=== PATIENT | female | born 1945 | race Caucasian/White ===

== ENCOUNTER 2020-02-16 09:46 | Inpatient (IN) ==
[~2020-02-16 09:46] MED LIST: Acetaminophen IV 1,000 MG/100 ML INFUS..BTL IVPB ONE; Famotidine 20 MG/2 ML VIAL IVP ONE; Ringers Solution, Lactated 1,000 ML IVC SCH; Total Joint Mixture (50 ml) INTRAART ONE
[2020-02-16] MEDS ORDERED: CeFAZolin Syr 2,000MG/20 ML 2,000 MG/20 ML SYRINGE IVPB ONE (10:13)
[2020-02-16] MEDS ORDERED: Vancomycin 1,000 MG VIAL ONE (11:27)
[2020-02-16] MEDS ORDERED: Ethanol\\Acetic Acid\\Na Ace\\Ben 1,000 ML IRRIG.SOLN IR ONE (11:27)
[2020-02-16] MEDS ORDERED: *HR* FentaNYL (PF) 100 MCG/2 ML VIAL ONE (11:50)
[2020-02-16] MEDS ORDERED: Dexamethasone 4 MG/ML VIAL ONE (11:50)
[2020-02-16] MEDS ORDERED: Ondansetron 4 MG/2 ML VIAL ONE (11:50)
[2020-02-16] MEDS ORDERED: *HR* Propofol 200 MG/20 ML VIAL IVP ONE (12:04)
[2020-02-16] MEDS ORDERED: Ropivacaine/PF 0.5% 30 ML VIAL ONE (12:06)
[2020-02-16] MEDS ORDERED: Tranexamic Acid 1,000 MG/10 ML VIAL ONE (12:13)
[2020-02-16] MEDS ORDERED: *HR* HYDROMORPHONE 2 MG/ML VIAL ONE (12:48)
[2020-02-16] MEDS ORDERED: *HR* HYDROmorphone PF 0.5 MG/0.5 ML SYRINGE IVP PRN (13:59)
[2020-02-16] MEDS ORDERED: Ondansetron 4 MG/2 ML VIAL IVP ONE (13:59)
[2020-02-16] MEDS ORDERED: *HR* OxyCODONE Immed Rel 5 MG TABLET PO PRN (14:28)
[2020-02-16 14:37] LABS: Hematocrit 32.7 % (35.3-44.9)
[2020-02-16 14:38] LABS: Hemoglobin 10.1 g/dL (11.5-15.4)
[2020-02-16] MEDS ORDERED: *HR* Labetalol 20 MG/4 ML SYRINGE IVP PRN (14:45)
[2020-02-16] MEDS ORDERED: *HR* Labetalol 20 MG/4 ML SYRINGE IVP ONE (14:47)
[2020-02-16] MEDS ORDERED: Ondansetron 4 MG/2 ML VIAL IVP PRN (15:18)
[2020-02-16] MEDS ORDERED: Naloxone 0.4 MG/ML INJ IVP PRN (15:18)
[2020-02-16] MEDS ORDERED: Ringers Solution, Lactated 1,000 ML IVC SCH (15:18)
[2020-02-16] MEDS ORDERED: Loratadine 10 MG TABLET PO PRN (15:18)
[2020-02-16] MEDS ORDERED: D5% in Water 1,000 ML IVC PRN (15:18)
[2020-02-16] MEDS ORDERED: MOM Conc 10 ML UD.LIQ PO PRN (15:18)
[2020-02-16] MEDS ORDERED: Sennosides 8.6 MG TABLET PO PRN (15:18)
[2020-02-16] MEDS ORDERED: *HR* Dextrose 50 % in Water (Vial) 50 ML VIAL IVP PRN (15:18)
[2020-02-16] MEDS ORDERED: Dextrose Gel 15 GM/37.5 ML TUBE PO PRN ×2 (15:18)
[2020-02-16] MEDS ORDERED: *HR* Promethazine 25 MG/ML VIAL IVP PRN (15:18)
[2020-02-16] MEDS: (Dextroamphetamine/Amphetamine [Adderall 20 Mg Tablet) PO SCH ×2 (16:50→23:42)
[2020-02-16] MEDS: Ascorbic Acid 500 MG TABLET PO SCH (17:24)
[2020-02-16] MEDS: Insulin LISPRO 300 UNITS/3 ML VIAL SQ SCH (17:26)
[2020-02-16] MEDS: carvediloL 6.25 MG TABLET PO SCH (17:26)
[2020-02-16] MEDS: Furosemide 40 MG TABLET PO SCH (17:28)
[2020-02-16] MEDS: *HR* Warfarin 3 MG TABLET PO SCH (17:29)
[2020-02-16] MEDS: HYDROcodone BIT/Homatropine 5 MG TABLET PO PRN ×2 (17:41→23:41)
[2020-02-16] MEDS: CeFAZolin 2 GM/120 ML BAG IVPB SCH (19:43)
[2020-02-16] MEDS: *HR* OxyCODONE Immed Rel 5 MG TABLET PO PRN (19:56)
[2020-02-16] MEDS: traZODone 50 MG TABLET PO SCH (23:41)
[2020-02-17] MEDS: Insulin LISPRO 300 UNITS/3 ML VIAL SQ SCH ×5 (00:59→21:10)
[2020-02-17] MEDS: CeFAZolin 2 GM/120 ML BAG IVPB SCH (05:13)
[2020-02-17] MEDS: *HR* OxyCODONE Immed Rel 5 MG TABLET PO PRN ×2 (05:14→11:46)
[2020-02-17 06:56] LABS: Basophils # 0.1 K/mcL (0.0-0.2); Basophils % 0.3 %; Hematocrit 29.8 % (35.3-44.9); Hemoglobin 9.1 g/dL (11.5-15.4); Immature Granulocytes % 0.8 % (0-4); Lymphocytes # 1.1 K/mcL (0.6-4.6); Lymphocytes % 5.6 %; Mean Corpuscular HGB Conc 30.5 g/dL (31.6-35.5); Mean Corpuscular Volume 94.9 fL (83.0-100.0); Mean Platelet Volume 11.2 fL (9.4-12.4); Monocytes # 0.8 K/mcL (0.0-1.3); Monocytes % 4.1 %; Platelet Count 252 K/mcL (140-400); Red Blood Count 3.14 M/mcL (3.82-4.97); Red Cell Distribution Width 14.4 % (11.5-14.5); Segmented Neutrophils % 89.2 %; White Blood Count 19.1 K/mcL (4.3-11.1)
[2020-02-17 07:15] LABS: Calcium 9.4 mg/dL (8.6-10.3); Potassium 4.7 mEq/L (3.5-5.1)
[2020-02-17] MEDS: Aspirin Enteric Coated 81 MG Tablet PO SCH (08:43)
[2020-02-17] MEDS: *HR* Digoxin 0.125 MG TABLET PO SCH (08:45)
[2020-02-17] MEDS: Multivit/Ca/Min/Fe/FA 1 TAB TABLET PO SCH (08:45)
[2020-02-17] MEDS: Venlafaxine XR (24 HR) 37.5 MG CAP.ER.24H PO SCH (08:45)
[2020-02-17] MEDS: Furosemide 40 MG TABLET PO SCH ×2 (08:46→16:32)
[2020-02-17] MEDS: Venlafaxine XR (24 HR) 150 MG CAP.ER.24H PO SCH (08:46)
[2020-02-17] MEDS: Ascorbic Acid 500 MG TABLET PO SCH ×2 (08:47→16:31)
[2020-02-17] MEDS: carvediloL 6.25 MG TABLET PO SCH ×2 (08:47→16:33)
[2020-02-17] MEDS: (Dextroamphetamine/Amphetamine [Adderall 20 Mg Tablet) PO SCH ×3 (08:48→21:00)
[2020-02-17] MEDS ORDERED: Aspirin Enteric Coated 81 MG Tablet PO SCH (09:00)
[2020-02-17] MEDS: *HR* Warfarin 3 MG TABLET PO SCH (16:31)
[2020-02-17] MEDS: HYDROcodone BIT/Homatropine 5 MG TABLET PO PRN (21:52)
[2020-02-17] MEDS: traZODone 50 MG TABLET PO SCH (21:52)
[2020-02-18 01:03] LABS: Basophils # 0.1 K/mcL (0.0-0.2); Basophils % 0.4 %; Eosinophils # 0.2 K/mcL (0.0-0.6); Eosinophils % 1.4 %; Hematocrit 26.6 % (35.3-44.9); Hemoglobin 8.1 g/dL (11.5-15.4); Immature Granulocytes % 0.7 % (0-4); Lymphocytes # 1.8 K/mcL (0.6-4.6); Lymphocytes % 14.3 %; Mean Corpuscular HGB Conc 30.5 g/dL (31.6-35.5); Mean Corpuscular Volume 95.3 fL (83.0-100.0); Mean Platelet Volume 11.6 fL (9.4-12.4); Monocytes # 0.9 K/mcL (0.0-1.3); Monocytes % 7.2 %; Neutrophils # 9.6 K/mcL (1.6-8.9); Platelet Count 198 K/mcL (140-400); Red Blood Count 2.79 M/mcL (3.82-4.97); Red Cell Distribution Width 14.8 % (11.5-14.5); White Blood Count 12.6 K/mcL (4.3-11.1)
[2020-02-18 01:26] LABS: Calcium 8.5 mg/dL (8.6-10.3)
[2020-02-18] MEDS: *HR* OxyCODONE Immed Rel 5 MG TABLET PO PRN (07:13)
[2020-02-18] MEDS: Insulin LISPRO 300 UNITS/3 ML VIAL SQ SCH ×3 (08:05→16:57)
[2020-02-18] MEDS ORDERED: 0.9 % Sodium Chloride 1,000 ML IV ONE ×2 (08:34→11:25)
[2020-02-18] MEDS: Venlafaxine XR (24 HR) 37.5 MG CAP.ER.24H PO SCH (08:37)
[2020-02-18] MEDS: Venlafaxine XR (24 HR) 150 MG CAP.ER.24H PO SCH (08:37)
[2020-02-18] MEDS: carvediloL 6.25 MG TABLET PO SCH ×2 (08:38→18:17)
[2020-02-18] MEDS: *HR* Digoxin 0.125 MG TABLET PO SCH (08:38)
[2020-02-18] MEDS: Aspirin Enteric Coated 81 MG Tablet PO SCH (08:38)
[2020-02-18] MEDS: Ascorbic Acid 500 MG TABLET PO SCH ×2 (08:38→18:17)
[2020-02-18] MEDS: Furosemide 40 MG TABLET PO SCH (08:38)
[2020-02-18] MEDS: Multivit/Ca/Min/Fe/FA 1 TAB TABLET PO SCH (08:39)
[2020-02-18] MEDS: (Dextroamphetamine/Amphetamine [Adderall 20 Mg Tablet) PO SCH ×2 (09:26→15:53)
[2020-02-18] MEDS ORDERED: *HR* OxyCODONE Immed Rel 5 MG TABLET PO PRN (09:59)
[2020-02-18 13:30] LABS: INR 1.3; Prothrombin Time 14.2 Seconds (9.4-12.1)
[2020-02-18] MEDS: HYDROcodone BIT/Homatropine 5 MG TABLET PO PRN (14:47)
[2020-02-18 14:58] LABS: Potassium 3.9 mEq/L (3.5-5.1)
[2020-02-18] MEDS: *HR* Warfarin 3 MG TABLET PO SCH (18:17)
[2020-02-18 19:25] VITALS: BP 132/72
== END 2020-02-18 19:14 | disposition home health service (06) | DRG 467 ==
LOC: SAMDAY 09:46 → 3NENU 15:13
PROVIDERS: ADMIT Orthopaedic Surgery; ATTEND Orthopaedic Surgery